=== PATIENT | male | born 1980 | race Caucasian/White ===

== ENCOUNTER 2022-01-12 15:15 | Emergency (ER) | payer MEDICAID ==
[~2022-01-12] VITALS: Ht 185.4 cm; Wt 89.8 kg
[2022-01-12 15:42] VITALS: BP_SYST 120
--- NOTE | 2022-01-12 15:42 | NUR ---
Patient to ER bed 6 to gown for evaluation. Side rails up. Report given to DWAYNE GALLEGOS.
--- NOTE | 2022-01-12 15:43 | NUR ---
PATIENT CAME IN FROM HOME C/O ABD PAIN TIMES 3 DAYS. PATIENT STATES HE HAS HX OF ALCOHOL AND MEHTAMPHETAMINE ABUSE AND WAS D/C FROM [facility] ON 01/08/22. PT WAS TOLD BY PHYSICIAN THAT HE HAD EARLY CIRRHOSIS AND WAS AT RISK FOR LIVER CANCER. PT HAS BEEN OFF OF ALCOHOL FOR APPROX 11 DAYS BUT STATES HIS ABDOMINAL PAIN (BILAT UPPER QUADRANTS) 11/07. PT DENIES OTHER MEDICAL HX OR HX OF SURGERY. A&OX4, CALM AND COOPERATIVE. CARE WILL BE PROVIDED ORDERED.
--- NOTE | 2022-01-12 15:45 | NUR ---
ER at bedside examining patient.
[2022-01-12] MEDS ORDERED: KETOROLAC TROMETHAMINE 30 MG VIAL IM ONE (16:00)
[2022-01-12] MEDS ORDERED: MAG-AL HYDROX/SIMETH 30 ML UDC PO ONE (16:00)
[2022-01-12] MEDS ORDERED: FAMOTIDINE 20 MG TABLET PO ONE (16:00)
[2022-01-12 16:23] LABS: HEMOGLOBIN 12.4 g/dL (14.0-18.0)
[2022-01-12 16:27] LABS: BASOPHILS # (AUTO) 0.1 K/uL (0.0-0.2); BASOPHILS % (AUTO) 2.9 % (0.0-2.0); EOSINOPHILS % (AUTO) 0.1 % (0.0-4.0); HEMATOCRIT 36.7 % (36-54); LYMPHOCYTES # (AUTO) 0.7 K/uL (1.0-5.5); LYMPHOCYTES % (AUTO) 18.5 % (20.5-51.5); MEAN CORPUSCULAR HEMOGLOBIN 33 pg (27-31); MEAN CORPUSCULAR HGB CONC 34 % (32-36); MEAN CORPUSCULAR VOLUME 98 fL (79.0-98.0); MONOCYTES # (AUTO) 0.6 K/uL (0.0-1.0); MONOCYTES % (AUTO) 14.5 % (1.7-9.3); NEUTROPHILS # (AUTO) 2.5 K/uL (1.8-7.7); PLATELET COUNT (AUTO) 231 K/uL (130-430); RED BLOOD CELL COUNT(AUTO) 3.74 MIL/uL (4.2-6.2); RED CELL DISTRIBUTION WIDTH 17.8 % (9.0-15.0)
[2022-01-12 16:29] LABS: CALCIUM 8.8 mg/dL (8.4-11.0); CREATININE 1.18 mg/dL (0.55-1.30); POTASSIUM 4.6 mmol/L (3.5-5.1)
[2022-01-12 16:34] LABS: ALBUMIN 3.5 g/dL (3.4-4.8); TOTAL BILIRUBIN 0.5 mg/dL (0.0-1.0)
[2022-01-12 16:38] LABS: INR 1.1 (0.80-1.20); PROTHROMBIN TIME 11.4 SECS (9.5-12.5)
--- NOTE | 2022-01-12 17:48 | NUR ---
PATIENT REQUESTED DINNER. MD WAS CONSULTED AND APPROVED PO INTAKE.
[2022-01-12] MEDS ORDERED: FAMO20TA8 PO (18:06)
[2022-01-12 18:50] VITALS: BP_SYST 140
--- NOTE | 2022-01-12 18:51 | NUR ---
Patient given written and verbal discharge instructions and verbalizes understanding. ER DR. DRE OREILLY discussed with patient the results and treatment provided. Patient in stable condition. ID arm band removed. IV catheter removed intact and dressing applied, no active bleeding. Rx of FAMOTIDINE given. Patient educated on pain management and to follow up with PMD. Pain Scale 2/10. Opportunity for questions provided and answered. Medication side effect fact sheet provided.
== END 2022-01-12 18:50 | disposition home or self-care (01) ==
LOC: SED 15:15
DX: R10.13 Epigastric pain (principal); R11.2 Nausea with vomiting, unspecified; R19.7 Diarrhea, unspecified; Z79.899 Other long term (current) drug therapy
CPT/HCPCS: 99284; 76700; 80053; 83690; 85025; 85610; 36415; 96372; J1885

== ENCOUNTER 2022-05-31 14:53 | Emergency (ER) | payer MEDICAID ==
[~2022-05-31] VITALS: Ht 188 cm; Wt 95.3 kg
[~2022-05-31 14:53] MED LIST: FAMO20TA8 PO
--- NOTE | 2022-05-31 15:05 | NUR ---
Placed in room 08 . Placed on laboratory monitor, blood pressure machine and pulse oximeter. To gown for exam. Side rails up. Report given to RENE Ochoa
[2022-05-31 15:12] VITALS: BP_SYST 126
--- NOTE | 2022-05-31 15:21 | NUR ---
Patient presents to the ED brought in by treatment center "[facility] Chief Complaint is Right side face numbness x 2d. Nausea and diarrhea with night sweats x5 days, patient suspected fever, but did not measure. Patient is awake, alert and oriented x 3. Patient is stable and placed on VS monitor.
--- NOTE | 2022-05-31 15:50 | NUR ---
ER Dr. Evans at bedside examining patient.
[2022-05-31] MEDS ORDERED: KETOROLAC TROMETHAMINE 60 MG/2 ML VIAL IM ONE (16:00)
[2022-05-31] MEDS ORDERED: CIPR500T5 PO (16:04)
[2022-05-31] MEDS ORDERED: IBUP-1971 PO (16:04)
--- NOTE | 2022-05-31 17:12 | NUR ---
Patient given written and verbal discharge instructions and verbalizes understanding. ER MD Evans discussed with patient the results and treatment provided. Patient in stable condition. ID arm band removed. Rx of Cipro and Ibuprofen given. Patient educated on pain management and to follow up with PMD. Pain Scale 0/10 post Toradol. Opportunity for questions provided and answered. Medication side effect fact sheet provided. 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
[2022-05-31 17:16] VITALS: BP_SYST 125
== END 2022-05-31 17:12 | disposition home or self-care (01) ==
LOC: SED 14:53
DX: R20.2 Paresthesia of skin (principal); R51.9 Headache, unspecified; R19.7 Diarrhea, unspecified; R50.9 Fever, unspecified; F15.10 Other stimulant abuse, uncomplicated; Z79.899 Other long term (current) drug therapy
CPT/HCPCS: 99283; 96372; J1885